=== PATIENT | male | born 1980 | race Caucasian/White ===

== ENCOUNTER 2017-11-20 10:22 | Emergency (ER) | payer OTHER ==
[~2017-11-20] VITALS: Ht 195.6 cm; Wt 120.2 kg
[2017-11-20 10:31] VITALS: BP 139/83
--- NOTE | 2017-11-20 11:05 | ED UPPER/LOWER EXTREMITY COMPL ---
History of Present Illness General Chief Complaint: Laceration Procedure Stated Complaint: RIGHT LEG LAC Source: patient Exam Limitations: no limitations Vital Signs & Intake/Output Vital Signs & Intake/Output Vital Signs Date Time Temp Pulse Resp B/P B/P Pulse O2 O2 Flow FiO2 Mean Ox Delivery Rate 11/20 1031 97.6 105 22 139/83 94 Room Air Allergies Coded Allergies: No Known Allergies (11/20/17) Triage Note: TRIAGE: PT TO ER WITH FAMILY C/C LAC TO RLE AT [place]. STATES HE ACCIDENTALLY CUT IT WITH PRUNING LEENA. SWITCHED HIS DRESSING TO GAUZE/TAMMIE WRAP DRESSING AT TRIAGE. BLEEDING IS NOW BETTER CONTROLLED. Triage Nurses Notes Reviewed? yes Onset: Abrupt Duration: minute(s): Timing: single episode today Severity: moderate, severe Pain/Injury Location: Right: Leg. No Modifying Factors: none HPI: 37-year-old male comes into the emergency room for further evaluation of laceration to right calf. Patient reports that he cut it with clippers by accident at home when outside. Some associated bleeding. Last tetanus shot unknown. Cramping pain to his calf area. Decreased down to his foot. Comes in for further evaluation. (Josse Reis) Past History Travel History Traveled to [place] past 21 day No Medical History Any Pertinent Medical History? see below for history Neurological: NONE EENT: NONE Cardiovascular: NONE Respiratory: NONE Gastrointestinal: NONE Hepatic: NONE Renal: NONE Musculoskeletal: gout, osteoarthritis, TORN MENISCUS JANNA KNEE Psychiatric: NONE Endocrine: NONE Blood Disorders: NONE Cancer(s): NONE [employer]EM[employer]/Reproductive: NONE Surgical History Surgical History: non-contributory Psychosocial History What is your primary language Faroese Tobacco Use: Current Daily Use Daily Tobacco Use Amount/Type: => 5 Cigarettes daily ETOH Use: occasional use Illicit Drug Use: denies illicit drug use Family History Hx Contributory? No (Josse Reis) Review of Systems Review of Systems Constitutional: Reports: no symptoms. EENTM: Reports: no symptoms. Respiratory: Reports: no symptoms. Cardiovascular: Reports: no symptoms. Gastrointestinal/Abdominal: Reports: no symptoms. Genitourinary: Reports: no symptoms. Musculoskeletal: Reports: see HPI. Skin: Reports: see HPI. Neurological/Psychological: Reports: no symptoms. Hematologic/Endocrine: Reports: no symptoms. Immunological: Reports: no symptoms. All Other Systems: Reviewed and Negative (Josse Reis) Physical Exam Physical Exam General Appearance: well developed/nourished, mild distress Head: atraumatic Eyes: Bilateral: normal appearance. Ears, Nose, Throat: normal ENT inspection, hearing grossly normal Neck: normal inspection Cardiovascular/Respiratory: no respiratory distress Back: normal inspection Leg Right: 2.5 cm laceration right calf Neurologic/Tendon: normal sensation, normal motor functions, normal tendon functions, responds to pain, no evidence tendon injury, no pulse deficit Skin: intact, normal color, warm/dry (Josse Reis) Progress Differential Diagnosis: contusion, dislocation, fracture, sprain, tendon injury, soft tissue fb Plan of Care: 11/20/2017 11:31:07 AM Bleeding controlled. Return if any other concerns. (Josse Reis) Departure Departure Disposition: HOME OR SELF CARE Condition: Stable Clinical Impression Primary Impression: Laceration of right calf without complication Referrals: Grover PERKINS,Dhruv Hammonds (PCP/Family) Additional Instructions: Return in 7-10 days for suture removal. Keep compression wrap on. No showering for 24 hours. Keep covered with bacitracin. Return if any bleeding increased swelling or pain or any other concerns worsening symptoms. Keep the compression dressing on for the next 5 days. Change it daily. Please go over all results of today's visit with your primary care doctor. Contact your primary care doctor to let them know you were here in the emergency room. There may be nonspecific findings which may not be related to your visit today here in the emergency room but may require further evaluation and chronic monitoring by your primary care doctor. If you had a laceration today the chance of foreign body always remains. You should follow-up with your primary care doctor for recheck in 3-5 days for a wound check. If you had an x-ray done there is a chance that a fracture could have been missed on initial read and you should follow-up with your primary care doctor for repeat x-rays if symptoms persist. If your blood pressure was elevated here in the emergency room please have rechecked by [facility] primary care doctor within the next 48. If you were prescribed a narcotic here in the emergency room or any type of controlled substances you're not allowed to drive while taking this medication or operate any type of heavy machinery. Narcotics can make you feel lightheaded dizziness nausea and can cause constipation. You may need to pick up man a stool softener. Thank you for choosing [facility] emergency room. Please return to the emergency room immediately if you have any other concerns worsening of symptoms. Departure Forms: Customer Survey General Discharge Information (Josse Reis) PA/NET DEVELOPER WITH [employer] Co-Sign Statement Statement: ED Attending supervision documentation- [] I saw and evaluated the patient. I have also reviewed all the pertinent lab results and diagnostic results. I agree with the findings and the plan of care as documented in the PA's/NET DEVELOPER [employer]'s documentation. [X] I have reviewed the ED Record and agree with the PA's/NET DEVELOPER [employer]'s documentation. [] Additions or exceptions (if any) to the PAs/NET DEVELOPER [employer]'s note and plan are summarized below: [] (Bryson PERKINS,Jose Leyva) Procedures Laceration/Wound Repair Progress: 2.5 cm laceration to right calf, some associated bleeding, chlorhexidine prep, 1 % lidocaine with epinephrine, 5 mL injected, 3. 0 nylon, 2 sutures placed, bacitracin, dry sterile dressing and compression wrap placed, (Josse Reis)
== END 2017-11-20 11:37 ==
LOC: ERH 10:22
DX: S81.811A Laceration without foreign body, right lower leg, initial encounter (principal); W27.8XXA Contact with other nonpowered hand tool, initial encounter; Y92.017 Garden or yard in single-family (private) house as the place of occurrence of the external cause; Y93.H2 Activity, gardening and landscaping
CPT/HCPCS: 90471; 90714; J2001